=== PATIENT | female | born 1985 | race African-American/Black ===

== ENCOUNTER 2016-09-13 09:11 | Emergency (ER) | payer MEDICAID ==
[~2016-09-13] VITALS: Ht 175.3 cm; Wt 126.1 kg
[~2016-09-13 09:11] MED LIST: ACETAMINOPHEN-1 EAC1 ORAL; AFRIN NASAL SPR30 ML NASAL; ALBUTEROL SULF8.5 GM INH; AMOXICILLIN500 MG ORAL; AZITHROMYCIN250 MG ORAL; CLINDAMYCIN HC300 MG ORAL; CORTISPORIN EAR10 ML OTIC; IBUPROFEN600 MG ORAL; IBUPROFEN800 M1 PO; IBUPROFEN800 MG ORAL; NORCO 5-325 TA1 EACH ORAL; PEPCID20 MG ORAL; PREDNISONE10 MG ORAL; PREDNISONE20 MG ORAL; PROMETHAZINE-C118 M1 ORAL; ZITHROMAX500 MG ORAL
[2016-09-13 09:36] VITALS: BP 101/70
[2016-09-13] MEDS ORDERED: Pseudoephedrine 30mg tab ORAL ONE (10:00)
[2016-09-13 10:31] LABS: APPEARANCE,URINE SLIGHTLY CLOUDY; KETONES,URINE NEGATIVE (NEGATIVE); LEUKOCYTE ESTERASE ,URINE 1+ (NEGATIVE); NITRITE,URINE NEGATIVE (NEGATIVE); PH,URINE 6 (4.5-8.0); PROTEIN,URINE 1+ (NEGATIVE); UROBILINOGEN,URINE 1 MG/DL (0.0-1.0)
[2016-09-13 10:31] LABS: BASOPHILS % (AUTO) 1.1 % (0.0-2.0); EOSINOPHILS % (AUTO) 1.7 % (0.0-3.0); LYMPHOCYTES % (AUTO) 27.6 % (20.0-45.0); MEAN CORPUSCULAR HEMOGLOBIN 33.6 PG (27.0-31.0); MEAN CORPUSCULAR HGB CONC 32.9 G/DL (32.0-36.0); MEAN CORPUSCULAR VOLUME 102 FL (80-99); MEAN PLATELET VOLUME 8.6 FL (6.5-10.1); MONOCYTES % (AUTO) 6.2 % (1.0-10.0); NEUTROPHILS % (AUTO) 63.4 % (45.0-75.0); PLATELET COUNT 205 K/UL (150-450); RED BLOOD COUNT 4.39 M/UL (4.20-5.40); RED CELL DISTRIBUTION WIDTH 13.1 % (11.6-14.8)
[2016-09-13 10:36] LABS: ICTOTEST NEGATIVE
[2016-09-13 10:42] LABS: BACTERIA,URINE FEW /HPF; MUCUS,URINE FEW /LPF (NONE/OCC); SQUAMOUS EPITHELIAL CELL,UR FEW /LPF (NONE/OCC)
[2016-09-13 10:45] LABS: ALANINE AMINOTRANSFERASE 20 U/L (3-33); ALBUMIN/GLOBULIN RATIO 1.6 (1.0-2.7); ANION GAP 12 (5-15); ASPARTATE AMINO TRANSFERASE 24 U/L (5-40); CALCIUM 9.2 mg/dL (8.6-10.2); CARBON DIOXIDE 24 mEQ/L (20-30); CHLORIDE 102 mEQ/L (98-107); CREATININE 0.6 mg/dL (0.5-0.9); GLOMERULAR FILTRATION RATE > 60 mL/min (>60); HEMOLYSIS 10; POTASSIUM 4.2 mEQ/L (3.4-4.9); SODIUM 138 mEQ/L (135-145); TOTAL PROTEIN 6.7 g/dL (6.6-8.7)
[2016-09-13] MEDS ORDERED: CHLORPHENIRAMINE4 M1 PO (12:44)
[2016-09-13] MEDS ORDERED: BECONASE AQ25 GM NASAL (12:45)
[2016-09-13] MEDS ORDERED: MECLIZINE HCL25 MG ORAL (12:46)
[2016-09-13 13:27] VITALS: BP 106/70
[2016-09-13 13:28] VITALS: BP 106/70
[2016-09-13 13:34] LABS: THYROID STIMULATING HORMONE 0.767 uIU/mL (0.300-4.500)
--- NOTE | 2016-09-13 21:36 | Emergency Room Report ---
History of Present Illness General Chief Complaint: Dizziness Source: Patient Present Illness HPI Patient with L ear congestion and discomfort with some dizziness. Recurrent problem post taking antibiotics. No recent fever. Tingling in hands and feet, more recently. No SOB, chest pain, palpitations. Not know thyroid function, never told goiter. No NVD, dysuria. LNMP normal. Daughter with febrile illness. Allergies: Coded Allergies: PENICILLINS (Verified Allergy, Intermediate, Hives, 11/05/12) SULFA (SULFONAMIDE ANTIBIOTICS) (Verified Allergy, Intermediate, Hives, ) Patient History Past Medical History: see triage record Social History: Reports: smoking Social History Narrative here with daughter Reviewed Nursing Documentation: PMH: Agreed, PSxH: Agreed Nursing Documentation-PMH Past Medical History: No Stated History Hx Asthma: Yes Hx Gastrointestinal Problems: No - C/S in 2009 Review of Systems All Other Systems: negative except mentioned in HPI Physical Exam Vital Signs Date Time Temp Pulse Resp B/P Pulse Ox O2 Delivery O2 Flow Rate FiO2 09/13/16 09:26 97.3 71 14 101/70 97 Room Air General Appearance: well appearing, no apparent distress Head: normocephalic, atraumatic Eyes: bilateral eye EOMI - nystagmus, bilateral eye PERRL, bilateral eye normal inspection ENT: hearing grossly normal, normal voice Neck: full range of motion, thyromegaly Respiratory: lungs clear, normal breath sounds, no respiratory distress, speaking full sentences Cardiovascular #1: regular rate, rhythm, no edema Cardiovascular #2: 2+ radial (R) Gastrointestinal: normal inspection, normal bowel sounds Musculoskeletal: back normal, digits/nails normal, no calf tenderness Neurologic: alert, oriented x3, motor strength/tone normal, SLR negative, sensory intact - though c/o tingling of hands and feet, cerebellar normal, normal gait, speech normal Psychiatric: mood/affect normal Skin: no rash Medical Decision Making Diagnostic Impression: Primary Impression: Serous otitis media Qualified Codes: H65.05 - Acute serous otitis media, recurrent, left ear Additional Impressions: Tingling Dizziness ER Course Exam is c/w serous otitis. This might explain dizziness, but labs indicated including THS in light of goiter. Treatment with decongestant. Tingling also broad ddx: diabetes, electrolyte abnormality, peripheral neuropathy, hyperventilation, thyroid disorder amongst others. Eval with w/u - labs, including TSH. Non-focal neuro. Labs unremarkable. Treated for serous otitis and given rx for antivert, steroids and decongestant. Also advised to have thyroid eval and consder vitamins. Also need for ENT as ear problem is recurrent. Patient stable for outpatient observation and treatment. Laboratory Tests Test 09/13/16 09:54 09/13/16 10:19 Urine Color Yellow Urine Appearance Slightly cloudy Urine pH 6 (4.5-8.0) Urine Specific [place] 1.020 (1.005-1.035) Urine Protein 1+ (NEGATIVE) H Urine Glucose (UA) Negative (NEGATIVE) Urine Ketones Negative (NEGATIVE) Urine Occult Blood 3+ (NEGATIVE) H Urine Nitrite Negative (NEGATIVE) Urine Bilirubin 1+ (NEGATIVE) H Urine Ictotest Negative Urine Urobilinogen 1 MG/DL (0.0-1.0) H Urine Leukocyte Esterase 1+ (NEGATIVE) H Urine RBC 2-4 /HPF (0 - 2) H Urine WBC 2-4 /HPF (0 - 2) Urine Squamous Epithelial Cells Few /LPF (NONE/OCC) Urine Bacteria Few /HPF (NONE) Urine Mucus Few /LPF (NONE/OCC) H Urine HCG, Qualitative Negative White Blood Count 6.0 K/UL (4.8-10.8) Red Blood Count 4.39 M/UL (4.20-5.40) Hemoglobin 14.8 G/DL (12.0-16.0) Hematocrit 44.9 % (37.0-47.0) Mean Corpuscular Volume 102 FL (80-99) H Mean Corpuscular Hemoglobin 33.6 PG (27.0-31.0) H Mean Corpuscular Hemoglobin Concent 32.9 G/DL (32.0-36.0) Red Cell Distribution Width 13.1 % (11.6-14.8) Platelet Count 205 K/UL (150-450) Mean Platelet Volume 8.6 FL (6.5-10.1) Neutrophils (%) (Auto) 63.4 % (45.0-75.0) Lymphocytes (%) (Auto) 27.6 % (20.0-45.0) Monocytes (%) (Auto) 6.2 % (1.0-10.0) Eosinophils (%) (Auto) 1.7 % (0.0-3.0) Basophils (%) (Auto) 1.1 % (0.0-2.0) Sodium Level 138 mEQ/L (135-145) Potassium Level 4.2 mEQ/L (3.4-4.9) Chloride Level 102 mEQ/L (98-107) Carbon Dioxide Level 24 mEQ/L (20-30) Anion Gap 12 (5-15) Blood Urea Nitrogen 10 mg/dL (7-23) Creatinine 0.6 mg/dL (0.5-0.9) Estimate Glomerular Filtration Rate > 60 mL/min (>60) Glucose Level 104 mg/dL (74-106) Calcium Level 9.2 mg/dL (8.6-10.2) Total Bilirubin 0.8 mg/dL (0.0-1.2) Aspartate Amino Transferase (AST) 24 U/L (5-40) Alanine Aminotransferase (ALT) 20 U/L (3-33) Alkaline Phosphatase 59 U/L (35-104) Total Creatine Kinase 184 U/L (26-140) H Total Protein 6.7 g/dL (6.6-8.7) Albumin 4.2 g/dL (3.5-5.2) Globulin 2.5 g/dL Albumin/Globulin Ratio 1.6 (1.0-2.7) Thyroid Stimulating Hormone (TSH) 0.767 uIU/mL (0.300-4.500) Last Vital Signs Date Time Temp Pulse Resp B/P Pulse Ox O2 Delivery O2 Flow Rate FiO2 09/13/16 13:28 97.3 89 16 106/70 99 Room Air Status: improved Disposition: HOME, SELF-CARE Condition: Improved Scripts Meclizine Hcl* (MECLIZINE*) 25 Mg Tablet 25 MG ORAL THREE TIMES A DAY Y for for dizziness, #10 TAB Prov: Leroy Osborne M.D. 09/13/16 Beclomethasone Dipropionate (BECONASE AQ) 25 Gm [place] 2 SPRAYS NASAL TWICE A DAY for 14 Days, #1 SPRAY Prov: Leroy Osborne M.D. 09/13/16 Chlorpheniramine Maleate (Chlorpheniramine Maleate) 4 Mg Tablet 4 MG PO Q6HR, #20 TAB Prov: Leroy Osborne M.D. 2/1/17 Patient Instructions: Serous Otitis Media Additional Instructions: Consider taking a vitamin for the tingling. I recommend B complex. See your doctor. Call today for an appointment soon. You might need to have a thyroid scan. You also need to see an ear, nose and throat specialist (for the ear). Leroy Osborne M.D. Sep 13, 2016 21:36
== END 2016-09-13 13:31 | disposition home or self-care (01) ==
LOC: EMR 10:19
DX: H65.92 Unspecified nonsuppurative otitis media, left ear (principal); R20.2 Paresthesia of skin; R42 Dizziness and giddiness; J45.909 Unspecified asthma, uncomplicated; Z88.0 Allergy status to penicillin; Z88.2 Allergy status to sulfonamides; F17.200 Nicotine dependence, unspecified, uncomplicated
CPT/HCPCS: 36415; 80053; 81003; 81025; 82550; 84443; 85025; 99284

== ENCOUNTER 2017-09-19 16:36 | Emergency (ER) | payer MEDICAID ==
[~2017-09-19] VITALS: Ht 172.7 cm; Wt 111.1 kg
[~2017-09-19 16:36] MED LIST changes: +BECONASE AQ25 GM NASAL; +CHLORPHENIRAMINE4 M1 PO; +MECLIZINE HCL25 MG ORAL
[2017-09-19 17:03] VITALS: BP 113/70
--- NOTE | 2017-09-19 17:53 | Emergency Room Report ---
History of Present Illness General Chief Complaint: Earache Present Illness HPI 28-year-old female presents to the emergency department complaining of 5/10 in severity constant sharp pain in the right year x3 days. Patient also reports sore throat x2 days. Patient reports intermittent fevers that are subjective. Patient also reports mild intermittent cough that is nonproductive. Patient states she has a mild nasal congestion. She describes her ear symptoms as discomfort and feeling as though the right ear needs to pop however multiple attempts to pop the ear have been unsuccessful. Denies high fevers, lethargy, neck pain/stiffness, irritability, photophobia dehydration, N/V/D. Denies Cp, Palpitations, LOC, AMS, seizures, paresthesias, or changes in Hearing or vision , no Sudden severe OJEDA. Allergies: Coded Allergies: PENICILLINS (Verified Allergy, Intermediate, Hives, 11/05/12) SULFA (SULFONAMIDE ANTIBIOTICS) (Verified Allergy, Intermediate, Hives, ) Patient History Past Medical History: see triage record Past Surgical History: none Pertinent Family History: none Now: No Reviewed Nursing Documentation: PMH: Agreed, PSxH: Agreed Nursing Documentation-PMH Hx Asthma: Yes Hx Gastrointestinal Problems: No - C/S in 2009 Review of Systems All Other Systems: negative except mentioned in HPI Physical Exam Vital Signs Date Time Temp Pulse Resp B/P (MAP) Pulse Ox O2 Delivery O2 Flow Rate FiO2 09/19/17 16:51 97.9 69 20 113/70 99 Room Air Sp02 EP Interpretation: reviewed, normal General Appearance: no apparent distress, alert, GCS 15, non-toxic Head: normocephalic, atraumatic Eyes: bilateral eye normal inspection, bilateral eye PERRL ENT: hearing grossly normal, normal pharynx, normal voice, uvula midline, moist mucus membranes, tonsillar swelling, other - Right TM is erythematous and bulging, canal and left TM + Canal are wnl, no soft palate swelling, tonsillar swelling bilaterally no exudates. Neck: full range of motion, no meningismus, no bony tend Respiratory: lungs clear, normal breath sounds, speaking full sentences Cardiovascular #1: regular rate, rhythm Musculoskeletal: back normal, gait/station normal, normal range of motion, non- tender Neurologic: alert, oriented x3, responsive, motor strength/tone normal, sensory intact, speech normal, grossly normal Psychiatric: judgement/insight normal Skin: normal color, no rash, warm/dry, well hydrated Lymphatic: no adenopathy Medical Decision Making PA Attestation Dr. Suarez is my supervising Physician whom patient management has been discussed with. Diagnostic Impression: Primary Impression: otitis media Additional Impression: Pharyngitis, acute Qualified Codes: J02.9 - Acute pharyngitis, unspecified ER Course 28-year-old female presents to the emergency department complaining of 5/10 in severity constant sharp pain in the right year x3 days. Patient also reports sore throat x2 days. Patient reports intermittent fevers that are subjective. Patient also reports mild intermittent cough that is nonproductive. Patient states she has a mild nasal congestion. She describes her ear symptoms as discomfort and feeling as though the right ear needs to pop however multiple attempts to pop the ear have been unsuccessful. Denies high fevers, lethargy, neck pain/stiffness, irritability, photophobia dehydration, N/V/D. Denies Cp, Palpitations, LOC, AMS, seizures, paresthesias, or changes in Hearing or vision , no Sudden severe OJEDA. Ddx considered but are not limited to OM, OE, mastoiditis, TM perforation, FB, pharyngitis, strep, SMOKE JUMPER just to name a few. Vital signs: are WNL, pt. is afebrile H&PE are most consistent with otitis media ORDERS: none required at this time, the diagnosis is clinical -OTOSCOPY: Right TM is erythematous and bulging, left TM and canal are within normal limits, bilateral tonsillar swelling, no exudates. Congestion noted. ED INTERVENTIONS: None required at this time. DISCHARGE: At this time pt. is stable for d/c to home. With PO ABX. Will provide printed patient care instructions, and any necessary prescriptions. Care plan and follow up instructions have been discussed with the patient prior to discharge. allergy to PCN will give Azithro Last Vital Signs Date Time Temp Pulse Resp B/P (MAP) Pulse Ox O2 Delivery O2 Flow Rate FiO2 09/19/17 17:03 97.9 20 113/70 99 Room Air 09/19/17 16:51 69 Disposition: HOME, SELF-CARE Condition: Stable Scripts [Auralgan Otic] No Conflict Check 2 DROP OT QID Y for For Pain, #15 ML Prov: Amarilis Harman 09/19/17 Pseudoephedrine Hcl* (NEXAFED*) 30 Mg Tablet 30 MG ORAL Q6H Y for congestion, #20 TAB Prov: Amarilis Harman 09/19/17 Acetaminophen* (TYLENOL EXTRA STRENGTH*) 500 Mg Tablet 500 MG ORAL Q6HR, #30 TAB 0 Refills Prov: Amarilis Harman 09/19/17 Codeine/Promethazine Hcl* (PROMETHAZINE-CODEINE SYRUP*) 118 Ml Syrup 5 ML ORAL Q6H Y for For Cough, #20 ML 0 Refills Prov: Amarilis Harman 09/19/17 Lidocaine HCl (Lidocaine HCl Viscous) 100 Ml Solution 20 MG MM TID, #120 MG Prov: Amarilis Harman 09/19/17 Azithromycin* (ZITHROMAX*) 250 Mg Tablet 250 MG ORAL DAILY, #6 TAB 0 Refills Take two tables once daily for 1 day, then one tablet once daily for 4 days. Prov: Amarilis Harman 09/19/17 Patient Instructions: Otitis Media, Adult, [id number] Additional Instructions: Take medications as directed. Follow up with a Primary Care Provider in 3-5 days, even if your symptoms have resolved. --Please review list of primary care clinics, if you do not already have a primary care provider Return sooner to ED if new symptoms occur, or current symptoms become worse. Do not drink alcohol, drive, or operate heavy machinery while taking Cough Syrup as this may cause drowsiness. - Please note that this Emergency Department Report was dictated using [employer] paving machine operator technology software, occasionally this can lead to erroneous entry secondary to interpretation by the dictation equipment. Amarilis Harman Sep 19, 2017 17:53
[2017-09-19] MEDS ORDERED: ZITHROMAX250 MG ORAL ×2 (17:57→18:11)
[2017-09-19] MEDS ORDERED: NEXAFED30 MG ORAL ×2 (17:57→18:11)
[2017-09-19] MEDS ORDERED: PROMETHAZINE-C118 M1 ORAL ×2 (17:57→18:11)
[2017-09-19] MEDS ORDERED: LIDOCAINE20 MG/1 M1 MM ×2 (17:57→18:11)
[2017-09-19] MEDS ORDERED: TYLENOL EXTRA500 MG ORAL ×2 (17:57→18:11)
[2017-09-19 17:59] VITALS: BP 113/70
[2017-09-19] MEDS ORDERED: AURALGAN OT ×2 (18:07→18:11)
== END 2017-09-19 18:20 | disposition home or self-care (01) ==
LOC: EMR 18:00
DX: H66.91 Otitis media, unspecified, right ear (principal); J02.9 Acute pharyngitis, unspecified; J45.909 Unspecified asthma, uncomplicated; Z88.0 Allergy status to penicillin; Z88.2 Allergy status to sulfonamides
CPT/HCPCS: 99284

== ENCOUNTER 2018-06-26 08:49 | Emergency (ER) | payer MEDICAID ==
[~2018-06-26] VITALS: Ht 170.2 cm; Wt 98.4 kg
[~2018-06-26 08:49] MED LIST changes: +AURALGAN OT; +LIDOCAINE20 MG/1 M1 MM; +NEXAFED30 MG ORAL; +TYLENOL EXTRA500 MG ORAL; +ZITHROMAX250 MG ORAL
[2018-06-26] MEDS ORDERED: NKM (09:02)
[2018-06-26 09:09] VITALS: BP 128/64
[2018-06-26] MEDS ORDERED: Ipratropium 0.02% Inh Soln 2.5ml UD HHN ONE (09:30)
[2018-06-26] MEDS ORDERED: Albuterol ud Inhalation HHN ONE (09:30)
[2018-06-26] MEDS ORDERED: PROMETHAZINE-C118 M1 ORAL (10:16)
[2018-06-26] MEDS ORDERED: ALBUTEROL SULF8.5 GM INH (10:16)
[2018-06-26 10:27] VITALS: BP 128/64
--- NOTE | 2018-06-26 11:36 | Emergency Room Report ---
History of Present Illness General Chief Complaint: Upper Respiratory Illness Source: Patient Present Illness HPI 33-year-old female presents ED complaining of cough, shortness of breath 1 day. Cough is dry. Notes chest tightness. Denies fevers chills. Denies sick contacts or recent travel. Admits to smoking. History of asthma. Does not have an inhaler at this time. No other aggravating relieving factors. Denies any other associated symptoms Allergies: Coded Allergies: PENICILLINS (Verified Allergy, Intermediate, Hives, 11/05/12) SULFA (SULFONAMIDE ANTIBIOTICS) (Verified Allergy, Intermediate, Hives, ) Patient History Past Medical History: asthma Past Surgical History: none Pertinent Family History: none Social History: Denies: smoking, alcohol use, drug use Last Menstrual Period: 06/24/18 Now: No Immunizations: UTD Reviewed Nursing Documentation: PMH: Agreed; PSxH: Agreed Nursing Documentation-PMH Hx Asthma: Yes Hx Gastrointestinal Problems: No - C/S in 2009 Review of Systems All Other Systems: negative except mentioned in HPI Physical Exam Vital Signs Date Time Temp Pulse Resp B/P (MAP) Pulse Ox O2 Delivery O2 Flow Rate FiO2 06/26/18 08:56 98.4 63 16 128/64 99 Room Air 06/26/18 09:33 21 Sp02 EP Interpretation: reviewed, normal General Appearance: no apparent distress, alert, GCS 15, non-toxic Head: normocephalic Eyes: bilateral eye normal inspection, bilateral eye PERRL ENT: normal ENT inspection Neck: normal inspection Respiratory: chest non-tender, decreased breath sounds, speaking full sentences , wheezing Cardiovascular #1: regular rate, rhythm, no edema Gastrointestinal: normal inspection Rectal: deferred Genitourinary: no CVA tenderness Musculoskeletal: normal inspection Neurologic: alert, oriented x3, responsive, motor strength/tone normal, sensory intact, speech normal Psychiatric: normal inspection Skin: normal inspection Lymphatic: normal inspection Medical Decision Making Diagnostic Impression: Primary Impression: Bronchitis ER Course Hospital Course 33-year-old female presents to ED complaining of cough, wheezing Differential diagnoses include: URI, bronchitis, asthma/COPD, pneumonia Clinical course Patient placed on stretcher. After initial history and physical I ordered nebulizer treatment. Upon reassessment patient states cough and symptoms have improved. Findings consistent with bronchitis. Discussed findings with patient. disease course is viral and self-limited. We will discharge with inhaler and cough medication. Safe for discharge close follow-up with PMD Diagnosis - bronchitis Stable and discharged home with prescriptions for Rx promethazine/codeine, albuterol. Instructed to followup with PMD. Return to ED if symptoms recur or worsen Last Vital Signs Date Time Temp Pulse Resp B/P (MAP) Pulse Ox O2 Delivery O2 Flow Rate FiO2 06/26/18 10:27 98.4 63 14 128/64 99 Room Air 21 Status: improved Disposition: HOME, SELF-CARE Condition: Stable Scripts Codeine/Promethazine Hcl* (PROMETHAZINE-CODEINE SYRUP*) 118 Ml Syrup 5 ML ORAL Q6H PRN for For Cough, #118 ML 0 Refills Prov: Nicko Schulz MD 06/26/18 Albuterol Sulfate* (ALBUTEROL SULFATE MDI*) 8.5 Gm Hfa.aer.ad 2 PUFF INH Q6H, #1 EA 0 Refills Prov: Nicko Schulz MD 06/26/18 Referrals: NON PHYSICIAN (PCP) Patient Instructions: Acute Bronchitis, [id number] Nicko Schulz MD Jun 26, 2018 11:36
== END 2018-06-26 10:30 | disposition home or self-care (01) ==
LOC: EMR 09:24
DX: J45.909 Unspecified asthma, uncomplicated (principal); Z88.0 Allergy status to penicillin; Z88.2 Allergy status to sulfonamides
CPT/HCPCS: 94640; 94664; 99284